=== PATIENT | male | born 1960 | race Caucasian/White ===

== ENCOUNTER 2018-07-21 08:44 | Day surgery (SDC) | payer BC ==
[2018-07-08 16:58] VITALS: BMI 30.7
[2018-07-21] MEDS ORDERED: LIDOCAINE HCL/PF 2% SDV 5ML VIAL ONE (10:17)
[2018-07-21] MEDS ORDERED: PROPOFOL 20 ML ONE ×2 (10:17)
[2018-07-21 10:59] VITALS: TEMP 98.2
[2018-07-21 11:11] VITALS: BP 110/56; PULSE 66
== END 2018-07-21 11:13 | disposition home or self-care (01) ==
LOC: FASU 08:44
PROVIDERS: ATTEND Internal Medicine Gastroenterology
PROC: 0DJD8ZZ Inspection of Lower Intestinal Tract, Via Natural or Artificial Opening Endoscopic (ICD-10-PCS; principal; 2018-07-21 10:00)
DX: Z12.11 Encounter for screening for malignant neoplasm of colon (principal); K64.1 Second degree hemorrhoids

== ENCOUNTER 2021-10-22 08:18 | Day surgery (SDC) | payer BC ==
[2021-10-14 16:15] VITALS: BMI 29.9
[2021-10-22 08:41] VITALS: TEMP 97.8
[2021-10-22] MEDS ORDERED: PROPOFOL 20 ML ONE ×2 (09:02)
[2021-10-22 10:47] VITALS: BP 118/69; PULSE 62
== END 2021-10-22 10:49 | disposition home or self-care (01) ==
LOC: FASU-ENDO 08:18
PROVIDERS: ATTEND Internal Medicine Gastroenterology
PROC: 0DJD8ZZ Inspection of Lower Intestinal Tract, Via Natural or Artificial Opening Endoscopic (ICD-10-PCS; principal; 2021-10-22 10:01)
DX: Z12.11 Encounter for screening for malignant neoplasm of colon (principal); K64.1 Second degree hemorrhoids; K64.8 Other hemorrhoids; Z80.0 Family history of malignant neoplasm of digestive organs

== ENCOUNTER 2023-03-20 15:38 | Emergency (ER) | payer BC ==
[2023-03-20 15:55] VITALS: BP 123/75; PULSE 67; RESP 18; TEMP 98; BMI 31.4
[2023-03-20] MEDS ORDERED: ACETAMINOPHEN 1000 MG/100 ML BAG IVPB ONE (16:47)
[2023-03-20] MEDS ORDERED: ACETAMINOPHEN INJECTION 100 ML IVPB ONE (16:53)
[2023-03-20 17:49] LABS: INR 1.02 (0.83-1.09); PROTHROMBIN TIME (PATIENT) 11.8 SEC (9.7-13.0)
[2023-03-20 17:51] LABS: ACTIVATED PTT 23.7 SECONDS (25.2-36.5)
[2023-03-20 18:20] LABS: POTASSIUM 4.3 mmol/L (3.5-5.1)
[2023-03-20 18:22] LABS: CALCIUM 9.5 mg/dL (8.5-10.1)
[2023-03-20 18:23] LABS: ALBUMIN 3.6 g/dl (3.4-5.0); BLOOD UREA NITROGEN 17.1 mg/dL (7-18)
[2023-03-20 18:26] LABS: CREATININE 0.9 mg/dL (0.55-1.3); URIC ACID 5.7 mg/dL (2.6-7.2)
[2023-03-20 18:27] LABS: TOT PROT 6.6 g/dl (6.4-8.2)
[2023-03-20 18:28] LABS: BILIRUBIN,TOTAL 0.5 mg/dL (0.2-1)
[2023-03-20 18:33] LABS: EOS % 1.5 % (0-4.5); HEMATOCRIT 45.9 % (35.4-49); HEMOGLOBIN 15.4 GM/dL (11.7-16.9); LYMPH % 25.3 % (8-40); MCH 29.9 pg (25.7-33.7); MCHC 33.5 g/dl (32.0-35.9); MEAN CELL VOLUME 89.3 fl (80-96); MEAN PLT VOLUME 8.1 fl (7.5-11.1); MONO % 8.4 % (3.8-10.2); NEUT % 63.8 % (42.8-82.8); PLATELET COUNT 247 10^3/uL (134-434); RBC 5.14 M/mm3 (4.00-5.60); RDW 13.1 % (11.9-15.9)
[2023-03-20 19:15] LABS: ERYTHROCYTE SEDIMENTATION RATE 12 mm/hr (0-20)
== END 2023-03-20 19:54 | disposition home or self-care (01) ==
LOC: JER 15:38
PROC: 3E033NZ Introduction of Analgesics, Hypnotics, Sedatives into Peripheral Vein, Percutaneous Approach (ICD-10-PCS; principal; 2023-03-20)
DX: M25.472 Effusion, left ankle (principal); M79.89 Other specified soft tissue disorders
CPT/HCPCS: 36415; 73610-TC-LT-FY; 73630-TC-LT; 80053; 84550; 85025; 85610; 85651; 85730; 93971-TC; 99285-25